=== PATIENT | male | born 1950 | race Caucasian/White ===

== ENCOUNTER 2022-09-05 00:32 | Day surgery (SDC) | payer MEDICARE, OTHER, SELFPAY ==
[2022-08-21 14:15] VITALS: BMI 31.2
[2022-09-05 06:54] VITALS: BP 149/82; PULSE 69; RESP 20; TEMP 36; O2SAT 95
--- NOTE | 2022-09-05 07:07 | P.PNAN_ITS ---
Anes - Initial Pre Proc Eval Procedure: Operation Date: 09/05/22 08:15 Proposed Procedures p Screening Colonoscopy - Olu Mcarthur MD Date/Time: 09/05/22 07:07 Surgeon: Olu Mcarthur MD Pre Op Diagnosis: Hx of Colon Polyps Patient Data Age: 72 Gender: M Height: 1.83 m Weight: 111.9 kg Last Vital Signs Temp 36.0 C L 09/05/22 06:54 Pulse 69 09/05/22 06:54 Resp 20 09/05/22 06:54 BP 149/82 H 09/05/22 06:54 Pulse Ox 95 09/05/22 06:54 O2 Del Method Room Air 09/05/22 06:54 Allergies Allergy/AdvReac Type Severity Reaction Status Date / Time quinapril Allergy Hives Verified 09/05/22 06:53 Home Medications Medication Instructions Recorded Confirmed Type aspirin 81 mg chewable tablet 81 mg PO DAILY 08/21/22 08/21/22 History atorvastatin 40 mg tablet 40 mg PO DAILY 08/21/22 08/21/22 History cholecalciferol (vitamin D3) 10 10 mcg PO DAILY 08/21/22 08/21/22 History mcg (400 unit) capsule (Vitamin D3) hydrochlorothiazide 12.5 mg tablet 12.5 mg PO DAILY 08/21/22 08/21/22 History metformin 750 mg tablet,extended 1,500 mg PO DAILY 08/21/22 08/21/22 History release 24 hr omeprazole 40 mg capsule,delayed 40 mg PO DAILY 08/21/22 08/21/22 History release pioglitazone 45 mg tablet 75 mg PO DAILY 08/21/22 08/21/22 History telmisartan 80 mg tablet 80 mg PO DAILY 08/21/22 08/21/22 History vitamin B complex (B 1 tablet PO DAILY 08/21/22 08/21/22 History Complex-Vitamin B12 tablet) Patient hx anesthesia problems: none Family hx anesthesia problems: none Results Review: All pre-operative results and documents have been reviewed as part of the pre- operative evaluation. [facility] Past Medical History Medical History (Updated 09/05/22 @ 07:08 by Isael Palma MD) Diabetes HTN (hypertension) Hyperlipidemia Obesity Surgical History Surgical History (Updated 09/05/22 @ 07:10 by Isael Palma MD) H/O colonoscopy History of lumbar surgery Social History Social History Smoking status: Never smoker Living arrangements: with family Spiritual care concerns: No Anes - Eval Final PreProcedure Day of Procedure 09/05/22 07:07 Patient weight: obese Heart: regular rate and rhythm Lungs: clear to auscultation Airway: Mallampati scale class II Neurological: alert and oriented Last oral intake: >/= 8 hours ASA classification: III Emergent: no Anesthetic plan: proceed Anesthesia type and monitoring: general GIVS and standard monitoring Results Review: All pre-operative results and documents have been reviewed as part of the pre- operative evaluation. Informed Consent: The patient's anesthetic plan and its attendant risks and benefits were discussed with the patient/family/POA. Questions were solicited and answers provided to the satisfaction of the patient/family/POA.
[2022-09-05] MEDS: LACTATED RINGERS 1,000 ML 150 ML IV CONT (07:10)
[2022-09-05 07:11] LABS: Glucose Point of Care 106 mg/dl (65-105)
--- NOTE | 2022-09-05 08:05 | PM.HPGS ---
History of Present Illness History of Present Illness Consent: Risks, benefits, and alternatives have been discussed and questions answered. Patient agrees to proceed with procedure. Chief complaint: Hx of Colon Polyps Narrative: Myke Churchill is a 72 year old male with polyps in 2018 Review of Systems Constitutional: Constitutional: Denies headache(s) and Denies weakness Eyes: Eyes: Denies blurry vision ENT: Reports Normal hearing present, Denies headache(s) and Denies neck pain Cardiovascular: Cardiovascular: Denies chest pain and Denies dyspnea Respiratory: Respiratory: Denies dyspnea Gastrointestinal: Gastrointestinal: Reports no additional gastrointestinal complaints Genitourinary: Genitourinary: Denies dysuria Musculoskeletal: Musculoskeletal: Denies neck pain Integumentary/Breasts: Skin/Breast: Denies dry skin Neurologic: Reports Normal hearing present, Denies headache(s) and Denies weakness Psychiatric: Psychiatric: Denies anxiety Endocrine: Endocrine: Denies change in body appearance Hematologic/Lymphatic: Hematologic/Lymphatic: Denies easy bleeding Allergic/Immunologic: Allergic/Immunologic: Denies urticaria PMFSH Past Medical History Medical History (Updated 09/05/22 @ 08:06 by Olu Mcarthur MD) Adenomatous colon polyp Diabetes HTN (hypertension) Hyperlipidemia Obesity Surgical History Surgical History (Updated 09/05/22 @ 07:10 by Isael Palma MD) H/O colonoscopy History of lumbar surgery Social History Social History Smoking status: Never smoker Living arrangements: with family Spiritual care concerns: No Meds Home Medications and Allergies Home Medications Medication Instructions Recorded Confirmed Type aspirin 81 mg chewable tablet 81 mg PO DAILY 08/21/22 08/21/22 History atorvastatin 40 mg tablet 40 mg PO DAILY 08/21/22 08/21/22 History cholecalciferol (vitamin D3) 10 10 mcg PO DAILY 08/21/22 08/21/22 History mcg (400 unit) capsule (Vitamin D3) hydrochlorothiazide 12.5 mg tablet 12.5 mg PO DAILY 08/21/22 08/21/22 History metformin 750 mg tablet,extended 1,500 mg PO DAILY 08/21/22 08/21/22 History release 24 hr omeprazole 40 mg capsule,delayed 40 mg PO DAILY 08/21/22 08/21/22 History release pioglitazone 45 mg tablet 75 mg PO DAILY 08/21/22 08/21/22 History telmisartan 80 mg tablet 80 mg PO DAILY 08/21/22 08/21/22 History vitamin B complex (B 1 tablet PO DAILY 08/21/22 08/21/22 History Complex-Vitamin B12 tablet) Allergies Allergy/AdvReac Type Severity Reaction Status Date / Time quinapril Allergy Hives Verified 09/05/22 06:53 Vital Signs Vital Signs - 24 hr 09/05/22 06:54 Temperature 96.8 F L Pulse Rate 69 Respiratory Rate 20 Blood Pressure 149/82 H Pulse Oximetry 95 Oxygen Delivery Room Air Exam Const: General: comfortable and no acute distress HENMT: Face/Nose/Sinus: Normal nares present Eyes: General: appearance normal, both eyes and all related structures Neck: Neck: no JVD Resp: Auscultation: clear to auscultation bilaterally Cardio: Rate: regular rate Rhythm: regular rhythm GI: Inspection: non-distended GI Palp: Yes Soft to palpation Skin: General skin exam: normal color Neuro: General: gait normal Speech: normal speech Extrem: General: normal to inspection Psych: Mental Status: mental status grossly normal Assessment and Plan Assessment and plan (1) Adenomatous colon polyp: Code(s): D12.6 - Benign neoplasm of colon, unspecified Status: Acute Assessment and Plan: colonoscopy
[2022-09-05 08:28] VITALS: BP 117/70; PULSE 56; RESP 22; O2SAT 97
[2022-09-05 08:38] VITALS: BP 122/70; PULSE 55; RESP 18; O2SAT 98
[2022-09-05 08:48] VITALS: BP 137/82; PULSE 64; RESP 20; O2SAT 99
== END 2022-09-05 09:05 | disposition home or self-care (01) ==
PROVIDERS: PCP Internal Medicine; Visit Provider Internal Medicine Gastroenterology
PROC: 0DJD8ZZ Inspection of Lower Intestinal Tract, Via Natural or Artificial Opening Endoscopic (ICD-10-PCS; CPT 45378; principal; 2022-09-05 08:15)
DX: Z12.11 Encounter for screening for malignant neoplasm of colon (principal); D12.3 Benign neoplasm of transverse colon; K63.5 Polyp of colon; K57.30 Diverticulosis of large intestine without perforation or abscess without bleeding; K64.8 Other hemorrhoids; E11.9 Type 2 diabetes mellitus without complications; I10 Essential (primary) hypertension; E78.5 Hyperlipidemia, unspecified; E66.9 Obesity, unspecified; Z68.33 Body mass index [BMI] 33.0-33.9, adult; Z79.84 Long term (current) use of oral hypoglycemic drugs; Z79.82 Long term (current) use of aspirin
CPT/HCPCS: 45385; 82948; 88305; J2704; J7120

== ENCOUNTER → 2023-02-21 16:12 | Outpatient (CLI) | payer MEDICARE, OTHER, SELFPAY ==
--- NOTE | ~2023-02-21 | XR_ITS ---
EXAM: XR abdomen/kub 1V DATE: 02/21/2023 16:35 HISTORY: Calcium kidney stone . COMPARISON: None available. FINDINGS: Clear lung bases. Normal bowel gas pattern. No organomegaly. 8 mm calcification projecting over the left renal shadow. 4 mm calcification over the right mid abdomen likely represents bowel co ntents. Degenerative changes in the spine, bilateral hips, and pubic symphysis. Pelvic phleboliths. IMPRESSION: Left nephrolithiasis. Reviewed, dictated and finalized at location K. IMPRESSION: Left nephrolithiasis.
== END ==
PROVIDERS: PCP Internal Medicine; Visit Provider Urology
DX: N20.0 Calculus of kidney (principal)
CPT/HCPCS: 74018

== ENCOUNTER 2023-03-05 11:17 | Outpatient (CLI) | payer MEDICARE, OTHER, SELFPAY ==
--- NOTE | 2023-03-05 11:37 | ECG_ITS ---
Measurements Intervals [place] Rate: 69 P: 8 [place]: 191 QRS: 40 QRSD: 102 T: 3 QT: 380 QTc: 409 Interpretive Statements SINUS RHYTHM POSSIBLE INFERIOR MYOCARDIAL INFARCTION [30 ms Q WAVE IN II/aVF], PROBABLY OLD ABNORMAL ECG NO PREVIOUS ECG AVAILABLE FOR COMPARISON Electronically Signed On 03-05-2023 11:59:59 CDT by Everardo Santizo M.D.
[2023-03-05 12:16] LABS: Anion Gap 2 mmol/L (8-16); Blood Urea Nitrogen 18 mg/dL (9-20); Calcium 9.5 mg/dL (8.4-10.2); Carbon Dioxide 35 mmol/L (22-30); Chloride 103 mmol/L (98-107); Estimated Glomerular Filt Rate > 60; Glucose 150 mg/dL (65-110); Potassium 4.1 mmol/L (3.4-5.0); Sodium 140 mmol/L (137-145)
[2023-03-05 12:17] LABS: Prothrombin Time 13.2 Seconds (11.1-14.7)
[2023-03-05 12:18] LABS: Partial Thromboplastin Time 26.1 SECONDS (22.3-36.8)
== END 2023-03-05 11:18 | disposition home or self-care (01) ==
LOC: ANHSURGERY 11:24
PROVIDERS: Anesthesiology; PCP Internal Medicine; Visit Provider Urology
DX: N20.0 Calculus of kidney (principal); E11.9 Type 2 diabetes mellitus without complications; I10 Essential (primary) hypertension; Z01.818 Encounter for other preprocedural examination
CPT/HCPCS: 36415; 80048; 85610; 85730; 87086; 93005

== ENCOUNTER 2023-03-09 01:57 | Day surgery (SDC) | payer MEDICARE, OTHER, SELFPAY ==
[2023-03-01 08:55] VITALS: BMI 35.3
--- NOTE | 2023-03-01 09:17 | PC.NURSE ---
Report to the Outpatient Waiting Room, entrance under the green pavilion located off [facility], at time __6:30AM on date __03/09/23 . Planned Procedure Time: __8:30AM . Time changes happen often and if your time is changed the preop area will call you the afternoon before. - You and your visitor will be asked to self-screen and do not enter if you have any COVID symptoms. - A mask is optional within the hospital at this time. Patients may have clear liquids (water, carbonated beverages, clear teas, apple juice) until 3 hours prior to surgery with a maximum of 20 ounces. - No food from midnight until time of surgery Take the following medications with a SIP of water the morning of surgery: __AMLODIPINE DO NOT STOP ANY OF YOUR OTHER PRESCRIPTION MEDICATIONS PRIOR TO SURGERY ?EXCEPT THE FOLLOWING Medications to discontinue per physician __HOLD ASPIRIN & ALL VITAMINS/SUPPLEMENTS 7 DAYS PRE-OP PER DR CRAIG(PER PATIENT)_ Date to take last dose___03/02/23 Please no make-up, nail luxembourgish, hairspray, perfume, deodorant, or body powder the day of surgery. No jewelry (including any body piercings) or valuables the day of surgery, leave them at home. Please take a shower or bath the night before, or the morning of, surgery with an antibacterial soap. Wear comfortable, loose fitting clothing. Children are encouraged to wear pajamas. - Jewelry must be removed prior to entering the operating room. Rings and piercings that are not removed may be cut off. - The hospital will not accept responsibility for valuables. - Please leave all valuables, including medications, at home the day of surgery. If you are going home after surgery, a licensed carrier driver must drive you home. - NO public transportation without another adult if you receive anesthesia. - We recommend that an adult stay with you for 24 hours following discharge. - We also recommend that you do not drive, make important decision, drink alcoholic beverages, or take any drugs that were not prescribed by your health care provider for at least 24 hours after your discharge time. Follow any additional instructions given to you from your surgeon. If you or anyone in your household have experienced Covid symptoms in the past week, please notify your surgeon or the nurse liaison at the phone number below for possible testing. Telephone instructions given to __PATIENT and asked if any additional questions and then verbalized understanding. Patient advised to call surgeon office or pre surgery nurse liaison [phone] if any additional questions.
[2023-03-09] VITALS (10 sets, daily range): BP systolic 118–162; BP diastolic 68–88; PULSE 52–71; RESP 12–18; TEMP 36–36.3; O2SAT 95–100
--- NOTE | ~2023-03-09 | XR_ITS ---
Supine and upright views of the abdomen Clinical history: Lithotripsy COMPARISON: 02/21/2023 Findings: Bowel gas pattern is nonspecific. No evidence for obstruction or free air. 1 cm left upper pole renal stone is unchanged. Stable pelvic calcifications noted. Osseous structures are intact. Impression: Stable 1 cm left upper pole renal stone. Reviewed, dictated and finalized at [facility]. Impression: Stable 1 cm left upper pole renal stone.
--- NOTE | 2023-03-09 07:15 | WPDHPUPDATE1 ---
History and Physical Update Update Date/Time: 03/09/23 07:15 History and Physical has been reviewed, including an updated exam of the patient. There are NO changes in the patient's condition. Risks, benefits, and alternatives have been discussed and questions answered. Patient agrees to proceed with procedure. Proceed with left renal eswl
[2023-03-09 07:23] LABS: Glucose Point of Care 120 mg/dl (65-105)
[2023-03-09] MEDS: LACTATED RINGERS 1,000 ML 30 ML IV CONT (07:30)
--- NOTE | 2023-03-09 08:00 | WPDANESEPPF ---
Anes - Initial Pre Proc Eval Procedure: Operation Date: 03/09/23 08:30 Proposed Procedures p Left Extracorporeal Shock Wave Lithotripsy - Javon Vega MD Date/Time: 03/09/23 08:00 Surgeon: Javon Vega MD Pre Op Diagnosis: Left Renal Stones Patient Data Age: 72 Gender: M Height: 1.8 m Weight: 112.7 kg Last Vital Signs Temp 36.0 C L 03/09/23 07:35 Pulse 71 03/09/23 07:35 Resp 18 03/09/23 07:35 BP 145/75 H 03/09/23 07:35 Pulse Ox 96 03/09/23 07:35 O2 Del Method Room Air 03/09/23 07:35 Allergies Allergy/AdvReac Type Severity Reaction Status Date / Time quinapril Allergy Hives Verified 03/09/23 07:08 Home Medications Medication Instructions Recorded Confirmed Type atorvastatin 40 mg tablet 40 mg PO HS 08/21/22 03/09/23 History cholecalciferol (vitamin D3) 10 10 mcg PO DAILY 08/21/22 03/09/23 History mcg (400 unit) capsule (Vitamin D3) hydrochlorothiazide 12.5 mg tablet 12.5 mg PO QAM 08/21/22 03/09/23 History metformin 750 mg tablet,extended 1,500 mg PO QAM 08/21/22 03/09/23 History release 24 hr omeprazole 40 mg capsule,delayed 40 mg PO DAILY 08/21/22 03/09/23 History release pioglitazone 45 mg tablet 45 mg PO QAM 08/21/22 03/09/23 History telmisartan 80 mg tablet 80 mg PO HS 08/21/22 03/09/23 History vitamin B complex (B 1 tablet PO HS 08/21/22 03/09/23 History Complex-Vitamin B12 tablet) amlodipine 2.5 mg tablet 2.5 mg PO QAM 03/01/23 03/09/23 History aspirin 81 mg tablet,delayed 81 mg PO HS 03/01/23 03/09/23 History release (Adult Low Dose Aspirin) clobetasol 0.05 % topical cream 1 applic topical BID 03/01/23 03/09/23 History Laboratory Tests 03/09/23 07:21 POC Capillary Glucose 120 H mg/dl (65-105) Patient hx anesthesia problems: none Family hx anesthesia problems: none Results Review: All pre-operative results and documents have been reviewed as part of the pre-operative evaluation. [facility] Past Medical History Medical History (Updated 09/05/22 @ 08:06 by Olu Mcarthur MD) Adenomatous colon polyp Diabetes HTN (hypertension) Hyperlipidemia Obesity Surgical History Surgical History (Updated 09/05/22 @ 07:10 by Isael Palma MD) H/O colonoscopy History of lumbar surgery Social History Social History Smoking status: Never smoker Substance use: never Living arrangements: with family Additional living arrangements comments: Spiritual care concerns: No Anes - Eval Final PreProcedure Day of Procedure 03/09/23 08:00 Patient weight: obese Heart: regular rate and rhythm Lungs: clear to auscultation Airway: Mallampati scale class II Neurological: alert and oriented Last oral intake: >/= 8 hours ASA classification: III Emergent: no Anesthetic plan: proceed Anesthesia type and monitoring: general LMA and standard monitoring Results Review: All pre-operative results and documents have been reviewed as part of the pre-operative evaluation. Informed Consent: The patient's anesthetic plan and its attendant risks and benefits were discussed with the patient/family/POA. Questions were solicited and answers provided to the satisfaction of the patient/family/POA.
[2023-03-09] MEDS: ceFAZolin 2 GM/D5W 50 ML 2 GM/50 ML BAG IVPB (08:24)
--- NOTE | 2023-03-09 09:02 | W.PM.PROC2 ---
Procedure Note - Detailed Date of Procedure 03/09/23 Pre-op Diagnosis Left Renal Stones Post-op Diagnosis Same Procedure Performed Lithotripsy of left renal calculus 1 cm Surgeon Javon Vega MD Anesthesia General Description of Procedure Patient was taken to the operative suite correctly identified. Once anesthesia was obtained the left renal stone was localized in both planes. Two thousand five hundred shocks were given stone. Patient tolerated procedure well without any complications and was taken recovery stable condition. He will follow-up in the office in 7-10 days with a KUB. This completes dictation on Myke boils. Placed in a copy of this op note to my office Estimated Blood Loss 0 Drains No Packing No Pathology None sent Complications No immediate complications Condition Stable Disposition PACU
[2023-03-09 09:35] LABS: Glucose Point of Care 125 mg/dl (65-105)
== END 2023-03-09 11:32 | disposition home or self-care (01) ==
PROVIDERS: PCP Internal Medicine; Visit Provider Urology
PROC: (CPT 50590; principal; 2023-03-09 08:30)
DX: N20.0 Calculus of kidney (principal); I10 Essential (primary) hypertension; E11.9 Type 2 diabetes mellitus without complications; E78.5 Hyperlipidemia, unspecified; E66.9 Obesity, unspecified; Z68.34 Body mass index [BMI] 34.0-34.9, adult; Z79.84 Long term (current) use of oral hypoglycemic drugs; Z79.82 Long term (current) use of aspirin
CPT/HCPCS: 50590; 74018; 82948; J0131; J0690; J1100; J2405; J2704; J3010; J7120

== ENCOUNTER 2023-03-29 11:46 | Outpatient (CLI) | payer MEDICARE, OTHER, SELFPAY ==
--- NOTE | ~2023-03-29 | XR_ITS ---
XR abdomen/kub 1V 03/29/2023 12:09 INDICATION: Renal stone TECHNIQUE: KUB COMPARISON: 03/09/2023 FINDINGS: Bowel gas pattern is normal. There is no evidence of free air, mass, organomegaly, ascites or obstruction. No abnormal calculi are seen. The bones appear intact. Moderate lumbar spondylosis . Lung bases are unremarkable. There are pelvic phleboliths. IMPRESSION: 1: No acute abdominal abnormality identified. Reviewed, dictated and finalized at location L.
== END 2023-03-29 11:47 | disposition home or self-care (01) ==
PROVIDERS: PCP Internal Medicine; Visit Provider Urology
DX: N20.0 Calculus of kidney (principal)
CPT/HCPCS: 74018